=== PATIENT | female | born 1930 | race Caucasian/White ===

== ENCOUNTER 2019-02-15 16:48 | Observation (INO) | payer MEDICARE, BC ==
[2019-02-15] MEDS ORDERED: Acetaminophen/oxyCODONE 325-5 MG Tab PO ONE (17:00)
--- NOTE | 2019-02-15 18:32 | EDM.PDOC ---
Scribed by Kallie Guzman 02/15/19 1717 for Chirag Wright MD <Chirag Wright - Last Filed: 02/15/19 18:31> ED HPI GENERAL MEDICAL PROBLEM - General Chief Complaint: General Time Seen by Provider: 02/15/19 16:51 Source of Information: Reports: Patient, EMS, EMS Notes Reviewed, RN, RN Notes Reviewed History Limitations: Reports: No Limitations - History of Present Illness INITIAL COMMENTS - FREE TEXT/NARRATIVE: Patient presents to ER by [facility] with complaint that she fell yesterday but did not think she hurt herself. Today, however, she complained of pain to both elbows, both knees and right hip and left chest wall. She states her family came over to visit her and was concerned and urged her to come to the hospital. She denies head injury, loss of consciousness or neck pain. She states that she has a small skin tear to the right elbow which did not happen from the fall, but from trying to get up. She states she fell due to tripping as she tried to go to the bathroom about 4:00 a.m. during the night. She denies any symptoms preceding the fall such as chest pain or dizziness. Onset Date: 02/14/19 Duration: Getting Worse Location: Reports: Generalized Quality: Reports: Ache Severity: Severe Improves with: Reports: None Worsens with: Reports: None Associated Symptoms: Reports: No Other Symptoms Left Shoulder Pain Score (Numeric/FACES): 9 - Related Data Allergies Allergy/AdvReac Type Severity Reaction Status Date / Time amoxicillin trihydrate Allergy Diarrhea Verified 02/15/19 17:05 [From Augmentin] potassium clavulanate Allergy Diarrhea Verified 02/15/19 17:05 [From Augmentin] contrast Allergy Diarrhea Uncoded 02/15/19 17:05 Home Meds: Home Meds Bimatoprost [Lumigan 0.03% Ophth Soln] 1 drop EYEBOTH DAILY 06/10/14 [History] Brimonidine [Alphagan P 0.1% Ophth Soln] 1 drop EYEBOTH BID 06/10/14 [History] Calc/D3/Mag/Zn/[employer]/Reid/Holden [Calcium 600 MG Plus Vit D] 600 mg PO DAILY [History] Dorzolamide HCl/Timolol Maleat [Cosopt Eye Drops] 1 drop EYEBOTH BID 06/10/14 [ History] Gemfibrozil [Lopid] 600 mg PO DAILY 06/10/14 [History] Metoprolol Tartrate 50 mg PO BID 06/10/14 [History] amLODIPine [Norvasc] 5 mg PO DAILY 06/10/14 [History] Insulin NPH/Insulin Reg,Human [Novolin 70-30] 21 units SUBCUT DAILY 06/15/14 [ History] Docusate Sodium/Sennosides [Senna Plus] 1 tab PO BEDTIME 30 Days tablet [Rx] Sodium Chloride 1 gm PO BID #30 tablet 07/08/14 [Rx] Past Medical History HEENT History: Reports: Glaucoma, Impaired Vision Cardiovascular History: Reports: High Cholesterol, Hypertension Musculoskeletal History: Reports: Fracture, Osteoarthritis Endocrine/Metabolic History: Reports: Diabetes, Type II, IDDM, Obesity/BMI 30+ Oncologic (Cancer) History: Reports: Breast - Past Surgical History Female Surgical History: Reports: Mastectomy, Nephrectomy Neurological Surgical History: Reports: C-Spine Musculoskeletal Surgical History: Reports: Knee Replacement (B/L) Oncologic Surgical History: Reports: Mastectomy Social & Family History - Family History Family Medical History: Noncontributory - Living Situation & Occupation Occupation: Retired ED ROS GENERAL - Review of Systems Review Of Systems: ROS reveals no pertinent complaints other than HPI. ED EXAM, GENERAL - Physical Exam Exam: See Below Exam Limited By: No Limitations General Appearance: Alert, No Apparent Distress, Obese Eye Exam: Bilateral Eye: Normal Inspection Nose: Normal Inspection, No Blood Throat/Mouth: Normal Inspection, Normal Lips, Normal Voice, No Airway Compromise Head: Atraumatic, Normocephalic Neck: Normal Inspection, Full Range of Motion Respiratory/Chest: No Respiratory Distress, Lungs Clear, No Accessory Muscle Use , Decreased Breath Sounds, Other (Left lower anterior/lateral chest wall tenderness, no visible bruising, no deformity, no dav crepitus.) Cardiovascular: Regular Rate, Rhythm GI/Abdominal: Normal Bowel Sounds, Soft, Non-Tender, No Distention Back Exam: Normal Inspection. No: CVA Tenderness (L), CVA Tenderness (R), Paraspinal Tenderness, Vertebral Tenderness Extremities: Normal Range of Motion (B/L shoulders, elbows, hips), Other ( Bruises to B/L elbows and knees. Small skin tear to Rt elbow. B/L knees are tender with painful ROM.) Neurological: Alert, Oriented, No Motor/Sensory Deficits Psychiatric: Normal Affect, Normal Mood Skin Exam: Warm, Dry, Normal Color Course - Vital Signs Last Recorded V/S: Last Vital Signs Temp 37.1 C 02/15/19 16:57 Pulse 99 02/15/19 16:57 Resp 20 02/15/19 16:57 BP 139/79 02/15/19 16:57 Pulse Ox 100 02/15/19 16:57 - Orders/Labs/Meds Orders: Active Orders 24 hr Category Date Time Status EKG 12 Lead [EKG Documentation Completion] [RC] STAT Care 02/15/19 19:04 Active Cervical Spine wo Cont [CT] Urgent Exams 02/15/19 18:57 Taken Chest Abdomen Pelvis wo Cont [CT] Urgent Exams 02/15/19 19:01 Taken Head wo Cont [CT] Urgent Exams 02/15/19 18:57 Taken Thoracic Spine wo Cont [CT] Urgent Exams 02/15/19 18:57 Taken CULTURE URINE [RM] Stat Lab 02/15/19 19:57 Received Steri Strips Application [OM.PC] Routine Oth 02/15/19 17:04 Ordered Labs: Laboratory Tests 02/15/19 02/15/19 02/15/19 Range/Units 19:00 19:23 19:23 WBC 8.9 (5.0-10.0) 10^3/uL RBC 4.63 (4.2-5.4) 10^6/uL Hgb 14.6 D (12.0-16.0) g/dL Hct 42.4 (37.0-47.0) % MCV 91.6 D (80-100) fL MCH 31.5 (27.0-34.0) pg MCHC 34.4 (33.0-35.0) g/dL Plt Count 127 L D (150-450) 10^3/uL Neut % (Auto) 67.0 (42.2-75.2) % Lymph % (Auto) 21.4 (20.5-50.1) % Charlotte % (Auto) 10.5 H (2-8) % Eos % (Auto) 0.7 L (1.0-3.0) % Baso % (Auto) 0.4 (0.0-1.0) % Sodium 135 (135-145) mmol/L Potassium 4.1 (3.6-5.0) mmol/L Chloride 103 (101-111) mmol/L Carbon Dioxide 24.0 (21.0-31.0) mmol/L Anion Gap 12.1 BUN 19 H (7-18) mg/dL Creatinine 1.2 (0.6-1.3) mg/dL Est Cr Clr Drug Dosing 27.84 mL/min Estimated GFR (MDRD) 43 BUN/Creatinine Ratio 15.83 Glucose 155 H (74-105) mg/dL Calcium 8.9 (8.4-10.2) mg/dl Total Bilirubin 1.0 (0.2-1.0) mg/dL AST 28 (10-42) IU/L ALT 15 (10-60) IU/L Alkaline Phosphatase 37 L (42-121) IU/L Troponin I 0.02 (0.00-0.02) ng/ml Total Protein 7.0 (6.7-8.2) g/dl Albumin 3.3 (3.2-5.5) g/dl Globulin 3.7 Albumin/Globulin Ratio 0.89 Urine Color Yellow (YELLOW) Urine Appearance Cloudy (CLEAR) Urine pH 5.5 (5.0-9.0) Ur Specific Benton 1.025 (1.005-1.030) Urine Protein Negative (NEGATIVE) Urine Glucose (UA) 100 H (NEGATIVE) Urine Ketones Trace H (NEGATIVE) Urine Occult Blood Trace-intact H (NEGATIVE) Urine Nitrite Negative (NEGATIVE) Urine Bilirubin Small H (NEGATIVE) Urine Urobilinogen 1.0 (0.2-1.0) mg/dL Ur Leukocyte Esterase Small H (NEGATIVE) Urine RBC 5-10 H /HPF Urine WBC >100 H (0-5/HPF) /HPF Ur Epithelial Cells Many H (NOT SEEN) /HPF Uric Acid Crystals Moderate (NOT SEEN) Amorphous Sediment Few (NOT SEEN) /HPF Urine Bacteria Many H (0-FEW/HPF) /HPF Urine Yeast Occasional H (NOT SEEN) /HPF Meds: Medications Discontinued Medications Generic Name Dose Route Start Last Admin Trade Name Freq PRN Reason Stop Dose Admin Oxycodone/Acetaminophen 1 tab 02/15/19 17:00 02/15/19 17:24 Percocet 325-5 Mg PO 02/15/19 17:01 1 tab ONETIME ONE Administration - Re-Assessments/Exams Free Text/Narrative Re-Assessment/Exam: 02/15/19 18:31 Care of pt transferred to Dr. Torres at 1900HR shift change. Departure - Departure Disposition: Refer to Observation Clinical Impression: Ribs, multiple fractures Qualifiers: Encounter type: initial encounter Fracture type: closed Laterality: left Qualified Code(s): S22.42XA - Multiple fractures of ribs, left side, initial encounter for closed fracture - Discharge Information Forms: ED Department Discharge - My Orders Last 24 Hours: My Active Orders 02/15/19 18:57 Cervical Spine wo Cont [CT] Urgent Head wo Cont [CT] Urgent Thoracic Spine wo Cont [CT] Urgent 02/15/19 19:01 Chest Abdomen Pelvis wo Cont [CT] Urgent 02/15/19 19:04 EKG 12 Lead [EKG Documentation Completion] [RC] STAT 02/15/19 19:57 CULTURE URINE [RM] Stat - Assessment/Plan Last 24 Hours: My Active Orders 02/15/19 18:57 Cervical Spine wo Cont [CT] Urgent Head wo Cont [CT] Urgent Thoracic Spine wo Cont [CT] Urgent 02/15/19 19:01 Chest Abdomen Pelvis wo Cont [CT] Urgent 02/15/19 19:04 EKG 12 Lead [EKG Documentation Completion] [RC] STAT 02/15/19 19:57 CULTURE URINE [RM] Stat <Easton Torres - Last Filed: 02/15/19 20:31> Course - Re-Assessments/Exams Free Text/Narrative Re-Assessment/Exam: 02/15/19 20:[address] Murray who kindly admitted pt to observation. Departure - Departure Time of Disposition: 20:30 Condition: Good I have read and agree with the documentation that has been completed regarding this visit. By signing this record, I attest that the documentation was completed in my physical presence and is an accurate record of the encounter.
[2019-02-15 19:49] LABS: ANION GAP 12.1
[2019-02-15] MEDS ORDERED: Ondansetron 4 MG Tab.DIS PO PRN (21:40)
[2019-02-15] MEDS ORDERED: Morphine 2 MG/ML Syringe IVPUSH PRN (21:40)
[2019-02-15] MEDS ORDERED: Docusate Sodium 100 MG Cap PO PRN (21:40)
[2019-02-15] MEDS ORDERED: Acetaminophen 325 MG Tab PO PRN (21:40)
[2019-02-15] MEDS ORDERED: Polyethylene Glycol 3350 Powder 17 GM Packet PO PRN (21:40)
[2019-02-15] MEDS ORDERED: Magnesium Hydroxide 400 MG/5 ML Susp 30 ML Cup PO PRN (21:40)
[2019-02-15] MEDS ORDERED: Denosumab 60 MG/1 ML Syringe SCH (21:45)
[2019-02-15] MEDS ORDERED: 50% Dextrose in Water 50 ML Syringe IVPUSH PRN (21:49)
[2019-02-15] MEDS ORDERED: Sodium Chloride 0.9% 1,000 ML IV SCH (22:00)
[2019-02-15] MEDS: cefTRIAXone 1 GM in Sodium Chloride 0.9% 50 ML IV SCH (22:14)
[2019-02-15] MEDS: Brimonidine 0.15% Ophth Soln 5 ML Bottle EYEBOTH SCH (22:43)
--- NOTE | 2019-02-16 04:14 | HP ---
CHIEF COMPLAINT: " I had a fall at home, left-sided chest pain." HISTORY OF PRESENTING ILLNESS: Ms. Salma Godoy is an 88-year-old female with a medical history significant for hypertension, hyperlipidemia, type 2 diabetes mellitus, history of osteoporosis, osteoarthritis, history of renal cell cancer status post right nephrectomy, secondary hyperparathyroidism, history of GI bleed, diabetes complicated with ophthalmology requiring diabetic eye exam, history of paroxysmal atrial fibrillation and history of breast cancer presented to the ER with complaints of having a fall and noted to have left-sided chest pain. Further imaging showed evidence of left-sided rib fracture. As she lives alone at home, she is being admitted to the hospital for pain control and for further evaluation and treatment. The patient claims that she woke up around 4 this morning. Usually she goes to the fridge to have some water before she goes to the bathroom. On her way to the fridge in the kitchen, she fell down. She feels as if the left knee gave away and fell down. She could not get up until the daughter and her son-in-law came to visit her at around 8. They called ambulance and they were able to pick her up. They wanted her to come to the hospital, but patient declined to come to the hospital, and in the evening when the daughter went back to visit her, she was complaining of left-sided chest pain, so was brought back to the ER. At this time, the patient complains of chest pain to the left side. She grades the pain as 5/10 in intensity, which is sharp in nature, aggravated on deep breathing and palpation, relieved with pain medication, nonradiating in nature, not associated with nausea or vomiting. The patient denied any history of fevers or chills in the last few days. No complaints of nausea, vomiting, or diarrhea in the last few days. No complaints of cough with sputum in the last few days, but complains of mild burning micturition. The patient denied any history of chest pains on exertion. No history of dyspnea on exertion. No history of orthopnea or paroxysmal nocturnal dyspnea. The patient denied any history of hematemesis, hematochezia, or melenic stools. Normal bowel and bladder habits otherwise. REVIEW OF SYSTEMS: A complete review of system including skin, ear, nose, and throat, cardiovascular system, respiratory system, gastrointestinal system, genitourinary system, hematology, oncology, neurology, allergy, immunology, constitutional were all evaluated and were negative except for the above-said notes. PAST MEDICAL HISTORY: Significant for hypertension, hyperlipidemia, type 2 diabetes mellitus, history of breast cancer in the past, osteoporosis, osteoarthritis, renal cell carcinoma, paroxysmal atrial fibrillation, infiltrating ductal carcinoma of the breast, history of GI bleed in the past, glaucoma, chronic kidney disease. PAST SURGICAL HISTORY: Significant for tonsillectomy, tibial fracture surgery, mastectomy, radical right nephrectomy, hysterectomy, hernia repair, colonoscopy, cataract extraction, breast surgery, adrenal gland surgery. FAMILY HISTORY: Significant for heart disease in her mother and father. Hypertension in her sister. SOCIAL HISTORY: The patient denied any history of smoking tobacco. No history of alcohol intake. ALLERGIES: The patient is noted to have allergies to amoxicillin, potassium and contrast. HOME MEDICATIONS: Include; 1. NPH 21 units subcu twice daily. 2. Vitamin D3 2000 units daily. 3. Aspirin 81 mg daily. 4. Tamoxifen 20 mg daily. 5. Calcitriol 0.25 mcg as needed. 6. Norvasc 5 mg daily. 7. Metoprolol 50 mg twice a day. 8. Lumigan eyedrops both eyes twice daily. 9. Senna Plus at bedtime. 10.Alphagan eyedrops twice daily. PHYSICAL EXAMINATION: Vital Signs: Temperature of 98.8, pulse of 99, blood pressure of 139/79, respiratory rate of 20, saturating at 100%. General Appearance: The patient is well oriented to time, place, and person. Follows commands spontaneously. Cardiovascular System: S1 and S2 heard with normal intensity. No gallops. Respiratory: Clear to auscultation bilaterally. No wheeze. No crepitations. Abdomen: Soft. Bowel sounds positive. Nontender. No rigidity. Extremities: No edema in bilateral lower extremities. Neurologic: No gross focal neurological deficits. LABORATORY DATA AND IMAGING: WBC 8.9, hemoglobin 14.6, hematocrit 42.4, platelet count 127. Sodium 135, potassium 4.1, chloride 103, bicarb 24, BUN 19, creatinine 1.2. Glucose 155. Urinalysis, leukocyte esterase small, nitrites negative, wbc greater than 100, epithelial cells many, bacteria many, yeast occasional. X-ray of the chest shows left 6th and 7th rib fractures. X-ray of left and right knee shows no acute fractures. CT scan of the chest consistent with ribs fracture, otherwise no acute finding. CT scan of the abdomen and pelvis shows small amount of fluid in the left upper quadrant. Splenic or left renal injury cannot be excluded. Indeterminate 3.2 cm focus off the left kidney, consider hemorrhagic cyst versus neoplasm. Again, postcontrast images could not further characterize cholelithiasis. CT scan of the cervical spine shows no acute fracture or dislocation. CT head shows no acute intracranial hemorrhage, suspected meningioma superficial to the right temporal lobe. Consider MRI if needed. CT scan of the thoracic spine, unremarkable CT of thoracic spine. ASSESSMENT: 1. Status post fall. 2. Left 6th and 7th rib fracture. 3. Hypertension. 4. Hyperlipidemia. 5. Type 2 diabetes mellitus. 6. Generalized debility. 7. History of renal cell carcinoma status post nephrectomy on the right side. 8. History of breast cancer. 9. Osteoarthritis. 10.Osteoporosis. PLAN: 1. Fall. The patient had a fall at her home. She claims that the left knee gave away and fell down. She had a CT scan of the chest, abdomen and pelvis and also x-ray of the knees which did not show any acute fracture except for the left 6th and 7th rib fracture. The patient will be admitted to the hospital. She is also noted to have a fluid collection in the left upper quadrant, exact etiology not clear. We will order for ultrasound of the spleen and kidney in the morning and we will closely monitor the patient while in the hospital. She denies any loss of consciousness. 2. Possible urinary tract infection. Patient already has abnormal urinalysis. She is also noted to have many epithelial cells, unsure the patient has a true UTI. We will obtain urine culture and we will order IV antibiotic with ceftriaxone and we will closely follow. Keep her hydrated with IV fluids. 3. Possible dehydration. The patient noted to have BUN of 19. We will have her on IV normal saline at 75 mL/h. 4. Hypertension. The patient's blood pressure seems to be in acceptable range. Continue with current treatment plan. 5. Type 2 diabetes mellitus. The patient noted to be on insulin regimen., continue the same. Check her fingersticks with each meals. Have her on supplemental scale insulin as needed for additional coverage of her blood glucose. 6. DVT prophylaxis. We will have her on SCDs for DVT prophylaxis. There was some fluid collection in the left upper quadrant, worrisome for any spleen or kidney injury as per the CT scan. Would avoid any heparin products for now. 7. Code status: The patient wants to be DNR/DNI. 8. Discussed with Dr. Seaman, ER physician regarding the plan of care. Reviewed the labs and medications. Reviewed the old charts. [facility] /[id number]
[2019-02-16] MEDS: Acetaminophen/oxyCODONE 325-5 MG Tab PO PRN ×3 (06:32→21:42)
[2019-02-16 06:44] LABS: ANION GAP 11.3
[2019-02-16] MEDS ORDERED: Sodium Chloride 1 GM Tab PO SCH (09:00)
[2019-02-16] MEDS ORDERED: Aspirin 81 MG Tab.EC PO SCH (09:00)
[2019-02-16] MEDS ORDERED: Tamoxifen 10 MG Tab PO SCH (09:00)
[2019-02-16] MEDS ORDERED: Metoprolol Tartrate 50 MG Tab PO SCH (09:00)
[2019-02-16] MEDS ORDERED: amLODIPine 5 MG Tab PO SCH (09:00)
[2019-02-16] MEDS: Insulin Lispro 100 Units/ML 3 ML Vial SUBCUT SCH ×4 (09:28→21:23)
[2019-02-16] MEDS: Insulin NPH HUM/REG Insulin HM 100 UNIT/ML 3 ML Vial SQ SCH ×2 (09:39→18:22)
[2019-02-16] MEDS ORDERED: CALCITRIOL 0.25 MCG PO SCH (10:00)
[2019-02-16] MEDS: TAMOXIFEN 10 MG PO SCH (10:53)
[2019-02-16] MEDS: amLODIPine 5 MG Tab **PT OWN MED PO SCH (10:54)
[2019-02-16] MEDS: CALCIUM 600 MG PO SCH (10:55)
[2019-02-16] MEDS: CHOLECALCIFEROL PO SCH (10:55)
[2019-02-16] MEDS: SODIUM CHLORIDE 1 GM PO SCH ×2 (10:56→21:30)
[2019-02-16] MEDS: METOPROLOL TARTRATE 50 MG PO SCH ×2 (10:56→21:27)
[2019-02-16] MEDS: BIMATOPROST EYEBOTH SCH ×3 (10:57→21:29)
[2019-02-16] MEDS: BRIMONIDINE 0.1% EYEBOTH SCH ×2 (10:58→21:30)
[2019-02-16] MEDS: Dorzolamide/Timolol 2%-0.5% Ophth Soln 10 ML Bottle EYEBOTH SCH ×2 (10:58→21:26)
[2019-02-16] MEDS: ASPIRIN 81 MG PO SCH (10:59)
[2019-02-16] MEDS: Cholecalciferol (Vitamin D3) 25 MCG Tab PO SCH (11:00)
--- NOTE | 2019-02-16 13:25 | US ---
EXAMINATION: Abdomen Comp SEX: Female AGE: 88 years CLINICAL HISTORY: 88-year-old female reported to have left upper quadrant fluid collection, s/p fall on recent unenhanced CT scan January. History of right nephrectomy 9 years ago for "cancer". INTERPRETATION: 1. Suspicious round 3.2 cm diameter exophytic VASCULAR mass lesion extending off the upper pole cortex left kidney. 2. Cholelithiasis. 3. Cystic structure LUQ but technically difficult exam (poor inspiratory effort and unprepped). Recommend follow-up contrast-enhanced CT scan abdomen or MRI abdomen for this high risk patient, i.e., possible contralateral left renal neoplasm. CONCLUSION: Abnormal.
--- NOTE | 2019-02-16 13:45 | PN ---
DATE: 02/16/2019 HISTORY OF PRESENT ILLNESS: Ms. Salma Godoy is an 88-year-old female with a medical history significant for hypertension; hyperlipidemia; type 2 diabetes mellitus; osteoporosis; osteoarthritis; history of renal cell carcinoma, status post right-sided nephrectomy; history of GI bleed in the past; history of breast cancer, who presented to the ER with having a fall and noted to have left 6th and 7th rib fractures. For the last 24 hours, the patient continues to have pain, mostly on the left side, 5 to 6 out of 10 in intensity, sharp in nature. Aggravated on deep breathing and movement, relieved with pain medication. Nonradiating type of pain, not associated with nausea or vomiting. Denies any abdominal pain. No fevers. No chills. No nausea. No vomiting. No diarrhea. REVIEW OF SYSTEMS: Cardiovascular, respiratory, gastrointestinal, neurology, constitutional were all evaluated. PHYSICAL EXAMINATION: Vitals: Temperature of 98.1, pulse of 103, blood pressure 128/70, respiratory rate of 20, saturating 100% on room air. General Appearance: The patient is well oriented to time, place, and person. Follows commands spontaneously. Cardiovascular System: S1, S2 heard with normal intensity. No gallops. Respiratory System: Clear to auscultation bilaterally. No wheeze. Mild crepitations at the base. Abdomen: Soft. Bowel sounds positive. Nontender. No rigidity. Extremities: Mild edema in bilateral lower extremities. MEDICATIONS: Reviewed. Continue with: 1. Tylenol 650 every 4 hours as needed for pain. 2. Percocet 5/325 mg every 4 hours as needed for moderate pain. 3. Norvasc 5 mg daily. 4. Aspirin 81 mg daily. 5. Ceftriaxone 1 g daily. 6. Humalog correction dose insulin. 7. NPH insulin 70/30, 25 units twice a day. 8. Milk of magnesium 30 mL every 12 hours as needed. 9. Metoprolol 50 mg twice a day. 10.Sodium chloride 1 g twice a day. 11.Tamoxifen 20 mg daily. LABORATORY DATA: Reviewed. WBC 7.5, hemoglobin 13.4, hematocrit 40, platelet count 119. Sodium 139, potassium 4.3, chloride 107, BUN 18, creatinine 1.1, glucose 115. Microbiology: Urine culture shows no growth. ASSESSMENT: 1. Left 6th and 7th rib fracture status post fall. 2. Hypertension. 3. Hyperlipidemia. 4. Left renal mass. 5. Fluid collection on the left side. 6. Intractable left-sided chest pain. 7. Type 2 diabetes mellitus. 8. Generalized debility. 9. History of breast cancer. 10.History of renal cell cancer on the right side, status post nephrectomy. 11.Osteoarthritis. 12.Osteoporosis. PLAN: 1. Left-sided chest pain. The patient continues to have the left-sided chest pain. Imaging studies showed evidence of left 6th and 7th rib fracture. We will have her on Percocet as needed for pain control and also prescribed Lidoderm transdermal patch for better pain control. We will have her on incentive spirometer for better pulmonary toileting. 2. Generalized debility. The patient presented with a fall. The patient is evaluated by Physical Therapy and Occupational Therapy. Continue the same while in the hospital. 3. Fluid collection. The patient is noted to have fluid collection in the left upper quadrant as per the CT scan of the abdomen and pelvis. Ordered for ultrasound of the liver, spleen, gallbladder and also the kidneys for further evaluation. We will await for official report. 4. Left-sided renal mass. The patient had history of right-sided renal cancer requiring nephrectomy on the right side. The patient is not to have a [address] mass [address] the CT scan. We will follow with ultrasound of the left kidney and this will need to be followed as an outpatient with further imaging studies and further evaluation as an outpatient. 5. Type 2 diabetes mellitus. Continue with current insulin regimen, seems to be well controlled. Continue with correction dose insulin. Have her on hypoglycemic protocol. 6. DVT prophylaxis. Given the fluid collection and 6th and 7th rib fracture, we held the heparin products. We will follow the official report on ultrasound. If there is no evidence of bleeding, then one might consider adding a heparin product for DVT prophylaxis. 7. Renal mass. There is a 3 cm mass on the kidney, worrisome for solid mass. Follow with ultrasound. She might need outpatient followup for this for further evaluation and treatment. [facility] /[id number]
[2019-02-16] MEDS: Lidocaine 5% 700 MG Patch TOP SCH (14:22)
[2019-02-16] MEDS: Brimonidine 0.15% Ophth Soln 5 ML Bottle EYEBOTH SCH (16:18)
[2019-02-16] MEDS: cefTRIAXone 1 GM in Sodium Chloride 0.9% 50 ML IV SCH (21:31)
[2019-02-17] MEDS: Insulin Lispro 100 Units/ML 3 ML Vial SUBCUT SCH ×2 (08:30→13:15)
[2019-02-17] MEDS: Insulin NPH HUM/REG Insulin HM 100 UNIT/ML 3 ML Vial SQ SCH (09:19)
[2019-02-17] MEDS: Cholecalciferol (Vitamin D3) 25 MCG Tab PO SCH (09:20)
[2019-02-17] MEDS: amLODIPine 5 MG Tab **PT OWN MED PO SCH (09:21)
[2019-02-17] MEDS: BIMATOPROST EYEBOTH SCH (09:21)
[2019-02-17] MEDS: SODIUM CHLORIDE 1 GM PO SCH (09:21)
[2019-02-17] MEDS: METOPROLOL TARTRATE 50 MG PO SCH (09:22)
[2019-02-17] MEDS: ASPIRIN 81 MG PO SCH (09:23)
[2019-02-17] MEDS: TAMOXIFEN 10 MG PO SCH (09:23)
[2019-02-17] MEDS: Dorzolamide/Timolol 2%-0.5% Ophth Soln 10 ML Bottle EYEBOTH SCH (09:24)
[2019-02-17] MEDS: BRIMONIDINE 0.1% EYEBOTH SCH (09:24)
[2019-02-17] MEDS: CHOLECALCIFEROL PO SCH (09:25)
[2019-02-17] MEDS: CALCIUM 600 MG PO SCH (09:25)
[2019-02-17] MEDS: Lidocaine 5% 700 MG Patch TOP SCH (09:27)
[2019-02-17 12:21] VITALS: BP 124/71; PULSE 80
--- NOTE | 2019-02-17 15:17 | DISCH ---
ADMITTING DIAGNOSES: 1. Left 6th and 7th rib fractures. 2. Status post fall. 3. Possible urinary tract infection. DISCHARGE DIAGNOSES: 1. Chest pain secondary to left 6th and 7th rib fracture, improved with oral Percocet and Lidoderm transdermal patch. 2. Possible urinary tract infection with negative urine culture, on oral ciprofloxacin for next 5 days. Treated with IV ceftriaxone while in the hospital. 3. History of right renal cell carcinoma, status post nephrectomy and now diagnosed with left renal mass, 3 cm, needing further workup as an outpatient. HISTORY OF PRESENTING ILLNESS: Ms. Salma Godoy is an 88-year-old female with a medical history significant for hypertension, hyperlipidemia, type 2 diabetes mellitus, osteoporosis osteoarthritis, history of right-sided renal cell cancer status post right nephrectomy, history of breast cancer in the past, history of GI bleed in the past; admitted to the hospital after having a fall at home. Her legs gave away and she fell onto the kitchen floor and was noted to have left- sided chest pain and further imaging study showed evidence of left 6th and 7th rib fracture. The patient was also noted to have abnormal fluid collection in the left upper quadrant on the CT abdomen and pelvis, so we did an ultrasound of the abdomen which did not show any splenic laceration or hepatic laceration, but she was noted to have a round 3.2 cm diameter exophytic vascular mass lesion extending off the upper pole of the left kidney cortex, unsure if this is renal mass versus adrenal mass, but this will need to be followed as an outpatient with further imaging studies including CT scan and possible MRI scan of the abdomen and further evaluation by a Urology. Called her primary care physician's office at [phone] and left a message for Dr. Misty Jackson for further workup of this renal mass as an outpatient. The patient remained hemodynamically stable on this admission. She is able to ambulate well with the help of walker. She was evaluated by Physical Therapy and Occupational Therapy in the hospital. Her pain is much improved on the current regimen with Lidoderm patch and oral pain medication. She is discharged home in stable condition. She was switched to oral ciprofloxacin for possible UTI on this admission. The patient's microbiology report showed no growth on her urine culture. She is discharged home in stable condition. She is advised to follow with her primary care physician in next 1 week of time. The patient was explained about the findings on the CT scan abdomen and also on the ultrasound abdomen and strongly encouraged her to have this worked up as an outpatient. DISCHARGE MEDICATIONS: Include Tylenol 650 every 4 hours as needed for pain, oxycodone with acetaminophen (Percocet) 5/325 mg every 8 hours as needed for pain, aspirin 81 mg daily. Lumigan ophthalmic 1 drop both eyes daily, Alphagan 1 drop both eyes twice a day, calcium with vitamin D 600 mg daily, calcitriol 0.25 mcg oral daily, vitamin D3 2000 units daily, ciprofloxacin 500 mg twice a day for next 5 days, denosumab 60 mg subcutaneous every 6 months as scheduled, docusate sodium with senna 1 tablet at bedtime, Cosopt eye drops both eyes twice daily, insulin NPH 70/30 21 units subcutaneous daily, Lidoderm transdermal patch 700 mg topical daily, metoprolol 50 mg twice a day, sodium chloride 1 g twice a day, tamoxifen 20 mg daily, and Norvasc 5 mg daily. PHYSICAL EXAMINATION ON THE DAY OF DISCHARGE: Vital Signs: Temperature of 98, pulse of 80, blood pressure 124/71, respiratory rate of 20, saturating at 98%. General Appearance: The patient is well oriented to time, place, and person. Follows commands spontaneously. Cardiovascular System: S1 and S2 heard with normal intensity. No gallops. Respiratory System: Clear to auscultation bilaterally. No wheeze. No crepitations. Abdomen: Soft. Bowel sounds positive. Nontender. No rigidity. Extremities: No edema in bilateral lower extremities. Neurology: No gross focal neurological deficits. CONDITION ON ADMISSION: Poor. CONDITION ON DISCHARGE: Stable. DIET: Cardiac healthy diet. ACTIVITY: As tolerated with fall precautions, always use the walker. The patient was explained about the medications including Percocet and Lidoderm and explained about drowsiness side effect profile of Percocet. The patient also explained about the findings on the ultrasound and CT scan of the abdomen and strongly encouraged her to follow with her primary care physician within 1 week of time for further evaluation of this mass as an outpatient. Follow up with primary care physician in next 1 week of time. Discharge summary note and also the ultrasound report will be faxed to her primary care physician's office. Left a message for Dr. Misty Jackson over the phone for further followup on the mass. Spent over 35 minutes of time in evaluating and treating this patient and discharge plans. [facility] /[id number]
--- NOTE | 2019-02-24 16:33 | CT ---
EXAMINATION: Chest Abdomen Pelvis wo Cont SEX: Female AGE: 88 years Addendum report 88-year-old high risk female (right nephrectomy 6 years ago for malignancy) with large 3.5 cm diameter exophytic, vascular (ultrasound) isodense solid mass lateral midpole cortex of the remaining left kidney. Cholelithiasis. Probable neoplasm but suggest follow-up unenhanced MRI to confirm the diagnosis.
== END 2019-02-17 13:07 | disposition home or self-care (01) ==
LOC: DL.ED 16:48 → DL.MS 20:33 → DL.ED 20:40 → DL.MS 20:43 → UNDOADMOB 20:43
PROVIDERS: ADMIT Internal Medicine; ATTEND Internal Medicine
DX: S22.42XA Multiple fractures of ribs, left side, initial encounter for closed fracture (principal); I12.9 Hypertensive chronic kidney disease with stage 1 through stage 4 chronic kidney disease, or unspecified chronic kidney disease; E11.22 Type 2 diabetes mellitus with diabetic chronic kidney disease; N18.9 Chronic kidney disease, unspecified; E78.5 Hyperlipidemia, unspecified; E11.9 Type 2 diabetes mellitus without complications; M81.0 Age-related osteoporosis without current pathological fracture; M19.90 Unspecified osteoarthritis, unspecified site; R53.81 Other malaise; W18.30XA Fall on same level, unspecified, initial encounter; Y92.000 Kitchen of unspecified non-institutional (private) residence as the place of occurrence of the external cause; Z85.528 Personal history of other malignant neoplasm of kidney; Z90.5 Acquired absence of kidney; Z79.4 Long term (current) use of insulin; Z79.899 Other long term (current) drug therapy; Z79.82 Long term (current) use of aspirin
CPT/HCPCS: 36415; 70450; 71101; 71250; 72125; 72128; 73562; 74176; 76700; 80048; 80053; 81001; 82962; 84484; 85025; 85027; 87086; 90686; 93005; 94010; 96361; 96365; 96366; 96375; 97162; 97165; 99217; 99219; 99226; 99284; 99285; A9270; G0008; G0378; J0696; J1815; J2270; J7030; J7050

== ENCOUNTER 2020-01-13 00:18 | Emergency (ER) | payer MEDICARE, BC ==
--- NOTE | 2020-01-13 00:17 | EDM.PDOC ---
ED HPI GENERAL MEDICAL PROBLEM - General Stated Complaint: FELL, INJURY RIGHT LEGG Time Seen by Provider: 01/13/20 00:17 Source of Information: Reports: Patient, Shelter Records, Provider (Dr. Marsh), RN, RN Notes Reviewed History Limitations: Reports: No Limitations - History of Present Illness INITIAL COMMENTS - FREE TEXT/NARRATIVE: Patient presents to ER per POV from assisted with complaint of right knee and right hip pain after a fall. Patient states she was using her walker to ambulate to the bathroom when her right knee "locked up" and she fell to the right side. Patient states she did not hit her head was not knocked out. Patient rates her pain an 8/10. Onset: Today, Sudden Right Knee Pain Score (Numeric/FACES): 9 - Related Data Allergies Allergy/AdvReac Type Severity Reaction Status Date / Time amoxicillin trihydrate Allergy Diarrhea Verified 01/13/20 00:28 [From Augmentin] potassium clavulanate Allergy Diarrhea Verified 01/13/20 00:28 [From Augmentin] contrast Allergy Diarrhea Uncoded 01/13/20 00:28 Home Meds: Home Meds Bimatoprost [Lumigan 0.03% Ophth Soln] 1 drop EYEBOTH DAILY 06/10/14 [History] Brimonidine [Alphagan P 0.1% Ophth Soln] 1 drop EYEBOTH BID 06/10/14 [History] Calc/D3/Mag/Zn/Alem/Reid/Coventry [Calcium 600 MG Plus Vit D] 600 mg PO DAILY 06/10/14 [History] Dorzolamide HCl/Timolol Maleat [Cosopt Eye Drops] 1 drop EYEBOTH BID 06/10/14 [History] Metoprolol Tartrate 50 mg PO BID 06/10/14 [History] amLODIPine [Norvasc] 5 mg PO DAILY 06/10/14 [History] Insulin NPH/Insulin Reg,Human [Novolin 70-30] 21 units SUBCUT DAILY 06/15/14 [History] Docusate Sodium/Sennosides [Senna Plus] 1 tab PO BEDTIME 30 Days tablet 07/08/14 [Rx] Sodium Chloride 1 gm PO BID #30 tablet 07/08/14 [Rx] Aspirin [Halfprin] 81 mg PO DAILY 02/15/19 [History] Cholecalciferol (Vitamin D3) [Vitamin D3] 2,000 unit PO DAILY 02/15/19 [History] Denosumab [Prolia] 60 mg .XX ASDIRECTED 02/15/19 [History] Tamoxifen Citrate 20 mg PO DAILY 02/15/19 [History] calcitrioL [Calcitriol] 0.25 mcg PO ASDIRECTED 02/15/19 [History] Acetaminophen [Tylenol] 650 mg PO Q4H PRN tablet 02/17/19 [Rx] Acetaminophen/oxyCODONE [Percocet 325-5 MG] 1 tab PO Q8HR PRN 5 Days #20 tablet 02/17/19 [Rx] Ciprofloxacin [Ciprofloxacin HCl] 500 mg PO BID 5 Days #10 tab 02/17/19 [Rx] Lidocaine 5% [Lidoderm 5%] 700 mg TOP DAILY 7 Days #7 patch 02/17/19 [Rx] Past Medical History HEENT History: Reports: Glaucoma, Impaired Vision Other HEENT History: pt blind in left eye, 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 Cardiovascular History: Reports: High Cholesterol, Hypertension Respiratory History: Reports: None Gastrointestinal History: Reports: None Genitourinary History: Reports: Urinary Incontinence Other Genitourinary History: one kidney removed, pt unable to remember which one [employer]CARA MOLDER History: Reports: Musculoskeletal History: Reports: Fracture, Osteoarthritis Neurological History: Reports: None Psychiatric History: Reports: None Endocrine/Metabolic History: Reports: Diabetes, Type II, IDDM, Obesity/BMI 30+ Hematologic History: Reports: None Immunologic History: Reports: None Oncologic (Cancer) History: Reports: Breast Dermatologic History: Reports: None - Infectious Disease History Infectious Disease History: Reports: None - Past Surgical History Respiratory Surgical History: Reports: None GI Surgical History: Reports: None Female Surgical History: Reports: Mastectomy, Nephrectomy Neurological Surgical History: Reports: C-Spine Musculoskeletal Surgical History: Reports: Knee Replacement Oncologic Surgical History: Reports: Mastectomy Social & Family History - Family History Family Medical History: Noncontributory - Caffeine Use Caffeine Use: Reports: None - Living Situation & Occupation Occupation: Retired Review of Systems - Review of Systems Review Of Systems: Comprehensive ROS is negative, except as noted in HPI. ED EXAM, GENERAL - Physical Exam Exam: See Below Exam Limited By: No Limitations General Appearance: Alert, WD/WN, Mild Distress Eye Exam: Bilateral Eye: EOMI, Normal Inspection Ears: Normal External Exam, Hearing Grossly Normal Nose: Normal Inspection Throat/Mouth: Normal Inspection, Normal Voice, No Airway Compromise Head: Atraumatic, Normocephalic Neck: Normal Inspection, Supple, Non-Tender, Full Range of Motion Respiratory/Chest: No Respiratory Distress, Normal Breath Sounds, No Accessory Muscle Use, Chest Non-Tender, Decreased Breath Sounds Cardiovascular: Normal Peripheral Pulses, Regular Rate, Rhythm, No Edema, No Gallop, No JVD, No Murmur, No Rub Peripheral Pulses: 1+: Dorsalis Pedis (L), Dorsalis Pedis (R), 2+: Radial (L), Radial (R) GI/Abdominal: Normal Bowel Sounds, Soft, Non-Tender, No Organomegaly, No Dis tention, No Abnormal Bruit, No Mass, Pelvis Stable (Female) Exam: Deferred Rectal (Female) Exam: Deferred Back Exam: Normal Inspection, Decreased Range of Motion Extremities: Pedal Edema (+3-4 pedal edema), Slow Capillary Refill, Limited Range of Motion (Right knee/leg) Neurological: Alert, Oriented, CN II-XII Intact, Normal Cognition Psychiatric: Normal Affect, Normal Mood Skin Exam: Warm, Dry, Intact, Normal Color, No Rash, Ecchymosis (Multiple areas on arms, shoulder, right hip/thigh area) Lymphatic: No Adenopathy Course - Vital Signs Last Recorded V/S: Last Vital Signs Temp 96.6 F L 01/13/20 01:25 Pulse 74 01/13/20 01:25 Resp 16 01/13/20 01:25 BP 157/61 H 01/13/20 01:25 Pulse Ox 99 01/13/20 01:25 - Orders/Labs/Meds Orders: Active Orders 24 hr Category Date Time Status Urinary Catheter Insertion [Insert Urinary Catheter] [ Care 01/13/20 01:00 Ordered OM.PC] Q24H CULTURE URINE [RM] Stat Lab 01/13/20 01:24 Received Labs: Laboratory Tests 01/13/20 01/13/20 01/13/20 Range/Units 01:06 01:06 01:06 WBC 10.8 H (5.0-10.0) 10^3/uL RBC 4.14 L (4.2-5.4) 10^6/uL Hgb 12.5 (12.0-16.0) g/dL Hct 36.7 L (37.0-47.0) % MCV 88.6 D (80-100) fL MCH 30.2 (27.0-34.0) pg MCHC 34.1 (33.0-35.0) g/dL Plt Count 205 D (150-450) 10^3/uL Neut % (Auto) 76.7 H (42.2-75.2) % Lymph % (Auto) 13.7 L (20.5-50.1) % Bland % (Auto) 8.1 H (2-8) % Eos % (Auto) 1.3 (1.0-3.0) % Baso % (Auto) 0.2 (0.0-1.0) % PT 10.4 (9.0-12.0) SEC INR 1.1 (0.9-1.2) Sodium 131 L (136-145) mmol/L Potassium 4.4 (3.5-5.1) mmol/L Chloride 97 L (98-107) mmol/L Carbon Dioxide 28 (21-32) mmol/L Anion Gap 10.4 (7-13) mEq/L BUN 12 (7-18) mg/dL Creatinine 1.02 (0.55-1.02) mg/dL Est Cr Clr Drug Dosing 39.20 mL/min Estimated GFR (MDRD) 51 BUN/Creatinine Ratio 11.8 (No establ ref range) Glucose 156 H (74-99) mg/dL Calcium 8.8 (8.5-10.1) mg/dL Total Bilirubin 0.7 (0.2-1.0) mg/dL AST 14 L (15-37) U/L ALT 14 (14-59) U/L Alkaline Phosphatase 47 (46-116) U/L Total Protein 6.9 (6.4-8.2) g/dL Albumin 2.6 L (3.4-5.0) g/dL Globulin 4.3 Albumin/Globulin Ratio 0.60 Urine Color (YELLOW) Urine Appearance (CLEAR) Urine pH (5.0-9.0) Ur Specific Gilson (1.005-1.030) Urine Protein (NEGATIVE) Urine Glucose (UA) (NEGATIVE) Urine Ketones (NEGATIVE) Urine Occult Blood (NEGATIVE) Urine Nitrite (NEGATIVE) Urine Bilirubin (NEGATIVE) Urine Urobilinogen (0.2-1.0) mg/dL Ur Leukocyte Esterase (NEGATIVE) Urine RBC /HPF Urine WBC (0-5/HPF) /HPF Ur Epithelial Cells (NOT SEEN) /HPF Amorphous Sediment (NOT SEEN) /HPF Urine Bacteria (0-FEW/HPF) /HPF Urine Mucus (NOT SEEN) /LPF 01/13/20 Range/Units 01:24 WBC (5.0-10.0) 10^3/uL RBC (4.2-5.4) 10^6/uL Hgb (12.0-16.0) g/dL Hct (37.0-47.0) % MCV (80-100) fL MCH (27.0-34.0) pg MCHC (33.0-35.0) g/dL Plt Count (150-450) 10^3/uL Neut % (Auto) (42.2-75.2) % Lymph % (Auto) (20.5-50.1) % Bland % (Auto) (2-8) % Eos % (Auto) (1.0-3.0) % Baso % (Auto) (0.0-1.0) % PT (9.0-12.0) SEC INR (0.9-1.2) Sodium (136-145) mmol/L Potassium (3.5-5.1) mmol/L Chloride (98-107) mmol/L Carbon Dioxide (21-32) mmol/L Anion Gap (7-13) mEq/L BUN (7-18) mg/dL Creatinine (0.55-1.02) mg/dL Est Cr Clr Drug Dosing mL/min Estimated GFR (MDRD) BUN/Creatinine Ratio (No establ ref range) Glucose (74-99) mg/dL Calcium (8.5-10.1) mg/dL Total Bilirubin (0.2-1.0) mg/dL AST (15-37) U/L ALT (14-59) U/L Alkaline Phosphatase (46-116) U/L Total Protein (6.4-8.2) g/dL Albumin (3.4-5.0) g/dL Globulin Albumin/Globulin Ratio Urine Color Yellow (YELLOW) Urine Appearance Slightly cloudy (CLEAR) Urine pH 7.0 (5.0-9.0) Ur Specific Gilson 1.020 (1.005-1.030) Urine Protein 30 H (NEGATIVE) Urine Glucose (UA) Negative (NEGATIVE) Urine Ketones Negative (NEGATIVE) Urine Occult Blood Small H (NEGATIVE) Urine Nitrite Negative (NEGATIVE) Urine Bilirubin Negative (NEGATIVE) Urine Urobilinogen 0.2 (0.2-1.0) mg/dL Ur Leukocyte Esterase Small H (NEGATIVE) Urine RBC 5-10 H /HPF Urine WBC 20-30 H (0-5/HPF) /HPF Ur Epithelial Cells Rare (NOT SEEN) /HPF Amorphous Sediment Rare (NOT SEEN) /HPF Urine Bacteria Many H (0-FEW/HPF) /HPF Urine Mucus Few H (NOT SEEN) /LPF Meds: Medications Discontinued Medications Generic Name Dose Route Start Last Admin Trade Name Erikq PRN Reason Stop Dose Admin Hydromorphone HCl 0.5 mg 01/13/20 01:42 01/13/20 01:48 Dilaudid IVPUSH 01/13/20 01:43 0.5 mg ONETIME ONE Administration Morphine Sulfate 2 mg 01/13/20 01:07 01/13/20 01:11 Morphine IVPUSH 01/13/20 01:08 2 mg ONETIME ONE Administration Ondansetron HCl 4 mg 01/13/20 01:08 01/13/20 01:11 Zofran IV 01/13/20 01:09 4 mg ONETIME ONE Administration - Radiology Interpretation Free Text/Narrative:: Right Knee xray: PROCEDURE INFORMATION: Exam: XR Right Knee Exam date and time: 01/13/2020 12:43 AM Age: 89 years old Clinical indication: Injury or trauma; Fall; Initial encounter; Swelling (edema); Knee; Right; Prior surgery; Surgery date: 6+ months; Additional info: Fall, pain to right knee and right upper leg/hip TECHNIQUE: Imaging protocol: XR Right knee. Views: 3 views. COMPARISON: CR Knee 3V Rt 02/15/2019 5:50 PM FINDINGS: Bones/joints: Previous tibial plateau fracture repair with lateral plate and screws. Severe arthritic degeneration of the joint. Medial and lateral joint compartment narrowing. Severe patellofemoral joint degenerative narrowing. No acute fracture. No dislocation. No joint effusion. Soft tissues: No soft tissue foreign body. IMPRESSION: 1. Previous tibial plateau fracture repair. Orthopedic hardware is unremarkable in appearance. 2. Severe degenerative joint disease. 3. No acute fracture or dislocation. Thank you for allowing us to participate in the care of your patient. Dictated and Authenticated by: Steve Bartholomew MD 01/13/2020 1:07 AM Central Time ([place] & [place]) Right hip xray: PROCEDURE INFORMATION: Exam: XR Right Hip with Pelvis when Performed Exam date and time: 01/13/2020 12:36 AM Age: 89 years old Clinical indication: Injury or trauma; Fall; Initial encounter; Fracture of pelvis & hip; Right; Not specified; Neck of femur; Closed fracture; Additional info: Fall, pain to right knee and right upper leg/hip TECHNIQUE: Imaging protocol: XR Right hip with pelvis when performed. Views: 2 or 3 views. COMPARISON: No relevant prior studies available. FINDINGS: Bones/joints: Right inter trochanteric hip fracture. This is angulated moderately. The distal shaft appears to be anterior angulated. 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 There is no acute pelvic fracture or diastasis. Degenerative left hip joint space narrowing. Soft tissues: Unremarkable. IMPRESSION: 1. Intertrochanteric hip fracture right side with angulation. 2. No pelvic fracture or diastasis. 3. Lower lumbar spine degenerative disease. Thank you for allowing us to participate in the care of your patient. Dictated and Authenticated by: Steve Bartholomew MD 01/13/2020 1:09 AM Central Time ([place] & [place]) See rad report - Re-Assessments/Exams Free Text/Narrative Re-Assessment/Exam: 01/13/20 02:00 Discussed patient case with Dr. Guzmán who agreed to accept the patient for transfer to [facility]. Departure - Departure Time of Disposition: 02:23 Disposition: DC/Tfer to [facility] 02 Condition: Fair Clinical Impression: UTI (urinary tract infection) Qualifiers: Urinary tract infection type: site unspecified Hematuria presence: without hematuria Qualified Code(s): N39.0 - Urinary tract infection, site not specified Closed right hip fracture Qualifiers: Encounter type: initial encounter Qualified Code(s): S72.001A - Fracture of unspecified part of neck of right femur, initial encounter for closed fracture - Discharge Information *PRESCRIPTION DRUG MONITORING PROGRAM REVIEWED*: No *COPY OF PRESCRIPTION DRUG MONITORING REPORT IN PATIENT LATHA: No Forms: ED Department Discharge, Interfacility Transfer EMTALA Sepsis Event Note (ED) - Focused Exam Vital Signs: Vital Signs Temp Pulse Resp BP Pulse Ox 01/13/20 01:25 96.6 F L 74 16 157/61 H 99 01/13/20 00:21 96.5 F L 70 21 H 159/52 H 100 - My Orders Last 24 Hours: My Active Orders 01/13/20 01:00 Urinary Catheter Insertion [Insert Urinary Catheter] [OM.PC] Q24H 01/13/20 01:24 CULTURE URINE [RM] Stat - Assessment/Plan Last 24 Hours: My Active Orders 01/13/20 01:00 Urinary Catheter Insertion [Insert Urinary Catheter] [OM.PC] Q24H 01/13/20 01:24 CULTURE URINE [RM] Stat
[2020-01-13] MEDS ORDERED: Morphine 2 MG/ML SYRINGE IVPUSH ONE (01:07)
--- NOTE | 2020-01-13 01:07 | CR ---
PROCEDURE INFORMATION: Exam: XR Right Knee Exam date and time: 01/13/2020 12:43 AM Age: 89 years old Clinical indication: Injury or trauma; Fall; Initial encounter; Swelling (edema); Knee; Right; Prior surgery; Surgery date: 6+ months; Additional info: Fall, pain to right knee and right upper leg/hip TECHNIQUE: Imaging protocol: XR Right knee. Views: 3 views. COMPARISON: CR Knee 3V Rt 02/15/2019 5:50 PM FINDINGS: Bones/joints: Previous tibial plateau fracture repair with lateral plate and screws. Severe arthritic degeneration of the joint. Medial and lateral joint compartment narrowing. Severe patellofemoral joint degenerative narrowing. No acute fracture. No dislocation. No joint effusion. Soft tissues: No soft tissue foreign body. IMPRESSION: 1. Previous tibial plateau fracture repair. Orthopedic hardware is unremarkable in appearance. 2. Severe degenerative joint disease. 3. No acute fracture or dislocation.
[2020-01-13] MEDS ORDERED: Ondansetron 4 MG/2 ML SDV IV ONE (01:08)
--- NOTE | 2020-01-13 01:09 | CR ---
PROCEDURE INFORMATION: Exam: XR Right Hip with Pelvis when Performed Exam date and time: 01/13/2020 12:36 AM Age: 89 years old Clinical indication: Injury or trauma; Fall; Initial encounter; Fracture of pelvis & hip; Right; Not specified; Neck of femur; Closed fracture; Additional info: Fall, pain to right knee and right upper leg/hip TECHNIQUE: Imaging protocol: XR Right hip with pelvis when performed. Views: 2 or 3 views. COMPARISON: No relevant prior studies available. FINDINGS: Bones/joints: Right inter trochanteric hip fracture. This is angulated moderately. The distal shaft appears to be anterior angulated. 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 There is no acute pelvic fracture or diastasis. Degenerative left hip joint space narrowing. Soft tissues: Unremarkable. IMPRESSION: 1. Intertrochanteric hip fracture right side with angulation. 2. No pelvic fracture or diastasis. 3. Lower lumbar spine degenerative disease.
[2020-01-13 01:26] VITALS: BP 157/61; PULSE 74
[2020-01-13 01:34] LABS: ANION GAP 10.4 mEq/L (7-13)
[2020-01-13] MEDS ORDERED: HYDROmorphone 0.5 MG/0.5 ML Syringe IVPUSH ONE (01:42)
== END 2020-01-13 02:19 ==
LOC: DL.ED 00:18
DX: S72.141A Displaced intertrochanteric fracture of right femur, initial encounter for closed fracture (principal); N39.0 Urinary tract infection, site not specified; M19.90 Unspecified osteoarthritis, unspecified site; E11.9 Type 2 diabetes mellitus without complications; E66.9 Obesity, unspecified; Z68.29 Body mass index [BMI] 29.0-29.9, adult; Z88.1 Allergy status to other antibiotic agents; Z91.041 Radiographic dye allergy status; Z79.82 Long term (current) use of aspirin; Z79.4 Long term (current) use of insulin; W19.XXXA Unspecified fall, initial encounter; Y92.129 Unspecified place in nursing home as the place of occurrence of the external cause; R94.31 Abnormal electrocardiogram [ECG] [EKG]
CPT/HCPCS: 36415; 51702; 73502; 73562; 80053; 81001; 85025; 85610; 87077; 87086; 87088; 87186; 93005; 96374; 96375; 99284; 99285; J1170; J2270; J2405